=== PATIENT | male | born 1970 | race Two or more races ===

== ENCOUNTER 2021-08-23 17:14 | Emergency (ER) | payer SELFPAY ==
[~2021-08-23] VITALS: Ht 170.2 cm; Wt 71.2 kg
--- NOTE | 2021-08-23 17:43 | NUR ---
COVID SWAB DONE AND SENT TO LAB
[2021-08-23 17:59] LABS: BASOPHILS # (AUTO) 0.1 K/uL (0.0-0.2); BASOPHILS % (AUTO) 1.1 % (0.0-2.0); EOSINOPHILS % (AUTO) 2.1 % (0.0-6.0); HEMATOCRIT 42 % (39-51); HEMOGLOBIN 14.3 g/dL (13.5-17.5); LYMPHOCYTES # (AUTO) 3.1 K/uL (0.8-4.8); MEAN CORPUSCULAR HGB CONC 34 g/dl (31.0-36.0); MEAN CORPUSCULAR VOLUME 97 fL (80-96); MONOCYTES # (AUTO) 0.5 K/uL (0.1-1.30); MONOCYTES % (AUTO) 6.5 % (2.0-12.0); NEUTROPHILS # (AUTO) 4.1 K/uL (1.8-8.9); NEUTROPHILS % (AUTO) 51.3 % (43.0-81.0); PLATELET COUNT (AUTO) 220 K/uL (150-450); RED BLOOD CELL COUNT(AUTO) 4.32 MIL/uL (4.5-6.0)
[2021-08-23 18:15] LABS: ALANINE AMINOTRANSFERASE 31 U/L (12-78); ALBUMIN 3.8 g/dL (3.4-5.0); ALCOHOL, BLOOD 186 mg/dL (0-0); ALKALINE PHOSPHATASE 87 U/L (46-116); ASPARTATE AMINOTRANSFERASE 14 U/L (15-37); BILIRUBIN,DIRECT 0.1 mg/dL (0.0-0.2); BILIRUBIN,TOTAL 0.4 mg/dL (0.2-1.0); CALCIUM, SERUM 8.1 mg/dL (8.5-10.1); CARBON DIOXIDE 24 mmol/L (21-32); CHLORIDE 107 mmol/L (98-107); CREATININE 0.8 mg/dL (0.6-1.3); GLUCOSE 107 mg/dL (74-106); SODIUM SERUM 144 mmol/L (136-145); TOTAL PROTEIN, SERUM 7.2 g/dL (6.4-8.2); UREA NITROGEN, BLOOD 12 mg/dL (7-18)
--- NOTE | 2021-08-23 18:19 | NUR ---
URINE COLLECTED AND SENT TO LAB
[2021-08-23 18:38] LABS: ACETAMINOPHEN < 10 ug/ml (10-30)
[2021-08-23 18:49] LABS: BILIRUBIN,URINE NEGATIVE (NEGATIVE); COLOR,URINE YELLOW (YELLOW); LEUKOCYTE ESTERASE ,URINE NEGATIVE (NEGATIVE); NITRITE, URINE NEGATIVE (NEGATIVE); PROTEIN,URINE NEGATIVE (NEGATIVE); UGLUCOSE NEGATIVE (NEGATIVE); UROBILINOGEN,URINE 0.2 EU/dL (0.2)
[2021-08-23 18:56] LABS: BACTERIA,URINE Few /HPF (None Seen); SQUAMOUS EPITHELIAL CELL,UR Few /HPF (None Seen); WBC,URINE 0-2 /HPF (0-3)
[2021-08-23] MEDS ORDERED: POTASSIUM CHLORIDE 20 MEQ TAB.PRT.SR PO ONE ×2 (18:57→19:00)
[2021-08-23] MEDS ORDERED: OLANZAPINE 5 MG TABLET ONE (18:58)
--- NOTE | 2021-08-23 19:00 | NUR ---
PATIENT WAS BIBRA FROM [place] STATING HE WANTS TO OD ON PILLS. PT DENIES HI, OR HEARING VOICES. PT IS AAO X 4, BREATHIGN EVEN AND UNLABORED. PT SEEN AND EXAMINED BY DR HECK. AMOS AT BEDSIDE. WILL CONTINUE TO MONITOR PATIENT.
[2021-08-23] MEDS ORDERED: OLANZAPINE 5 MG TABLET PO ONE (19:30)
--- NOTE | 2021-08-23 21:50 | NUR ---
CLINICALS FAXED OVER TO [facility]
--- NOTE | 2021-08-24 06:57 | NUR ---
REPEAT LABS FAXED TO [facility]
[2021-08-24] MEDS ORDERED: POTASSIUM CHLORIDE 20 MEQ TAB.PRT.SR PO ONE ×2 (07:32→08:00)
--- NOTE | 2021-08-24 09:28 | NUR ---
CALLED [facility] INTAKE AWAITING APPROVAL.
--- NOTE | 2021-08-24 10:09 | NUR ---
UPDATE: NO BED IN NO BEDS IN [place]. WAIT LISTED IN [place] #5
--- NOTE | 2021-08-24 17:39 | NUR ---
[facility] ([facility]) -- Patient is accepted at [facility]. Call [phone] for report.
[2021-08-24 18:00] VITALS: BP 125/75
--- NOTE | 2021-08-24 18:17 | NUR ---
report given to Kaleb REDD for [facility].
--- NOTE | 2021-08-24 18:17 | NUR ---
[facility] CALLED ETA 45 MINS.
--- NOTE | 2021-08-24 18:51 | NUR ---
patient picked up by private ambulance in no distress going to [facility].
== END 2021-08-24 18:51 ==
LOC: ER 17:16
DX: F29 Unspecified psychosis not due to a substance or known physiological condition (principal); F10.129 Alcohol abuse with intoxication, unspecified; F12.90 Cannabis use, unspecified, uncomplicated; Y90.6 Blood alcohol level of 120-199 mg/100 ml; E87.6 Hypokalemia; F20.9 Schizophrenia, unspecified; R45.851 Suicidal ideations; Z20.822 Contact with and (suspected) exposure to COVID-19
CPT/HCPCS: 36415 ×2; 80048; 80076; 80143; 80307; 80320 ×2; 81001; 83735; 84132; 85025; 87426; 99285; C9803; G0480